=== PATIENT | male | born 1965 | race Caucasian/White ===

== ENCOUNTER 2019-03-14 12:06 | Emergency (ER) | payer BC ==
--- NOTE | 2019-03-14 12:29 | EDM.PDOC ---
ED HPI GENERAL MEDICAL PROBLEM - General Chief Complaint: Lower Extremity Injury/Pain Stated Complaint: TRIPPED AND PUNCTURED TYRONFT CALF WITH A DEER HORN Time Seen by Provider: 03/14/19 12:15 Source of Information: Reports: Patient History Limitations: Reports: No Limitations - History of Present Illness INITIAL COMMENTS - FREE TEXT/NARRATIVE: 54 YO WM presents to ER with puncture wound to left lower extremity after accidentally falling on a deer head. Pt reports wound to anterior tibia. Pt denies having to dislodge deer horn from wound but puncture wound is present on exam. Pt with PMH of IDDM with last HgbA1C- 8.0. Pt able to ambulate without difficulty but states wound is painful. Pt reports [facility]CP [facility] but he' s able to follow up in [facility] for wound checks over the next 48 hours. Bleeding controlled, sensation and motor function intact. Onset: Today Location: Reports: Lower Extremity, Left Quality: Reports: Dull Severity: Moderate Improves with: Reports: Rest Worsens with: Reports: Movement Associated Symptoms: Reports: No Other Symptoms Left Lower Leg Pain Score (Numeric/FACES): 8 - Related Data Allergies Allergy/AdvReac Type Severity Reaction Status Date / Time amlodipine besylate Allergy Fluid Verified 03/14/19 12:16 [From [facility]] Retention cefepime Allergy Rash Verified 03/14/19 12:16 Home Meds: Home Meds Gabapentin 300 mg PO DAILY 08/01/13 [History] Sertraline HCl [Zoloft] 100 mg PO DAILY 08/01/13 [History] Gabapentin [Neurontin] 600 mg PO 1200,2100 08/12/15 [History] Levothyroxine 75 mcg PO ACBREAKFAST 08/12/15 [History] Liraglutide [Victoza] 1.8 mg SQ DAILY 08/12/15 [History] Metoprolol Tartrate [Lopressor] 50 mg PO BID 08/12/15 [History] DAPTOmycin [Cubicin] 750 mg IV Q24H 10/12/15 [History] Insulin Glarg,Human.Rec.Analog [LantUS Solostar] 30 units SUBCUT 0800,2100 10/25 [History] Greene/Min Oil/Ivelisse/Wool Alcoh [Eucerin Crme] 1 gm TOP ASDIRECTED PRN 11/01/15 [ History] Enoxaparin [Lovenox] 40 mg SUBCUT DAILY 11/01/15 [History] Heparin Sodium,Porcine/PF [Heparin 300 Unit/3 ml (100/ml)] 300 unit FLUSH DAILY@ 202911/01/15 [History] Lactobacillus Acidophilus [Probiotic] 1 each PO 0800,1600 11/01/15 [History] Losartan [Cozaar] 100 mg PO DAILY 11/01/15 [History] Omeprazole 20 mg PO ACBREAKFAST 11/01/15 [History] Sodium Chloride 0.9% [Saline Flush] 10 ml FLUSH DAILY@199911/01/15 [History] Ciprofloxacin [Ciprofloxacin HCl] 750 mg PO BID #10 tablet 11/07/15 [Rx] metroNIDAZOLE [Flagyl] 500 mg PO Q8H #15 tablet 11/07/15 [Rx] oxyCODONE 10 mg PO BID PRN #30 tablet 11/07/15 [Rx] oxyCODONE HCl/Acetaminophen [oxyCODONE-Acetaminophen 5-325] 2 tab PO QID PRN # 60 tablet 11/07/15 [Rx] Amoxicillin/Potassium Clav [Augmentin 875-125 Tablet] 1 each PO BID #20 tablet 03/14/19 [Rx] Hydrocodone/Acetaminophen [Hydrocodon-Acetaminophn 10-325] 1 each PO Q6HR PRN # 10 tablet 03/14/19 [Rx] Past Medical History HEENT History: Reports: Impaired Vision Cardiovascular History: Reports: High Cholesterol, Hypertension Respiratory History: Reports: Sleep Apnea Gastrointestinal History: Reports: None Genitourinary History: Reports: None, Renal Calculus, Other (See Below) Other Genitourinary History: has renal calculy in bladder Musculoskeletal History: Reports: Back Pain, Chronic, Osteoarthritis Neurological History: Reports: Neuropathy, Diabetic Psychiatric History: Reports: Anxiety, Depression Endocrine/Metabolic History: Reports: Diabetes, Type II, Hyperthyroidism, Obesity/BMI 30+ Hematologic History: Reports: None Dermatologic History: Reports: Other (See Below) Other Dermatologic History: discoloration with scabs to bilat lower extremities. - Infectious Disease History Infectious Disease History: Reports: Other (See Below) Other Infectious Disease History: diskitis to L4-L5 - Past Surgical History Musculoskeletal Surgical History: Reports: Arthroscopic Knee, Arthroscopic Procedure, Joint Replacement, Knee Replacement, Other (See Below) Social & Family History - Family History Family Medical History: Noncontributory - Living Situation & Occupation Living situation: Reports: , with Family Occupation: Employed Review of Systems - Review of Systems Review Of Systems: See Below Constitutional: Reports: No Symptoms Eyes: Reports: No Symptoms Ears: Reports: No Symptoms Nose: Reports: No Symptoms Mouth/Throat: Reports: No Symptoms Respiratory: Reports: No Symptoms Cardiovascular: Reports: No Symptoms GI/Abdominal: Reports: No Symptoms Genitourinary: Reports: No Symptoms Musculoskeletal: Reports: Leg Pain Skin: Reports: Wound (puncture wound to anterior aspect of left tibia) Neurological: Reports: No Symptoms Psychiatric: Reports: No Symptoms ED EXAM, GENERAL - Physical Exam Exam: See Below Exam Limited By: No Limitations General Appearance: Alert, WD/WN, No Apparent Distress Head: Atraumatic, Normocephalic Neck: Normal Inspection, Supple, Non-Tender, Full Range of Motion Respiratory/Chest: No Respiratory Distress, Lungs Clear, Normal Breath Sounds, No Accessory Muscle Use, Chest Non-Tender Cardiovascular: Normal Peripheral Pulses, Regular Rate, Rhythm, No Edema, No Gallop, No JVD, No Murmur, No Rub GI/Abdominal: Normal Bowel Sounds, Soft, Non-Tender, No Organomegaly, No Distention, No Abnormal Bruit, No Mass Back Exam: Normal Inspection, Full Range of Motion, NT Extremities: Normal Range of Motion, No Pedal Edema, Normal Capillary Refill. No: Increased Warmth, Redness Neurological: Alert, Oriented, CN II-XII Intact, Normal Cognition, Normal Gait, Normal Reflexes, No Motor/Sensory Deficits Psychiatric: Normal Affect, Normal Mood Skin Exam: Wound/Incision (puncture wound to left lower extremity- anterior aspect of left tibia) ED TRAUMA EXTREMITY PROCEDURES - Laceration/Wound Repair Left Anterior Distal Leg Lac/Wound Length In cm: 5 Appearance: Subcutaneous, Mildly Contaminated Distal NVT: Neuro & Vascular Intact Local Anesthesia - Lidocaine (Xylocaine): 1% Plain Local Anesthetic Volume: 5cc Skin Prep: Chlorhexidine (Hibiciens), Saline Exploration/Debridement/Repair: Wound Explored Closed With: Sutures Suture Size: 4-0 # of Sutures: 4 Suture Type: Simple Sterile Dressing Applied: Provider Tetanus Status Addressed: Yes Complications: No Course - Vital Signs Last Recorded V/S: Last Vital Signs Temp 36.2 C 03/14/19 12:12 Pulse 65 03/14/19 12:12 Resp 18 03/14/19 12:12 BP 144/74 H 03/14/19 12:12 Pulse Ox 98 03/14/19 12:12 - Orders/Labs/Meds Orders: Active Orders 24 hr Category Date Time Status Accu Check [Blood Glucose Check, Bedside] [RC] ONETIME Care 03/14/19 12:31 Active Vaccines to be Administered [RC] PER UNIT ROUTINE Care 03/14/19 12:31 Active GLUCOSE,POC [POC] Routine Lab 03/14/19 12:31 Received Ampicillin/Sulbactam Na [Unasyn] 3 gm Med 03/14/19 12:29 Active Sodium Chloride 0.9% [Normal Saline] 100 ml IV ONETIME Medication Orders Ampicillin Sodium/Sulbactam (Sodium 3 gm/ Sodium Chloride) 100 mls @ 100 mls/ hr IV ONETIME ONE Stop: 03/14/19 13:28 Last Admin: 03/14/19 12:54 Dose: 100 mls/hr Meds: Medications Generic Name Dose Route Start Last Admin Trade Name Freq PRN Reason Stop Dose Admin Ampicillin Sodium/Sulbactam 100 mls @ 100 mls/hr 03/14/19 12:29 03/14/19 12: 54 Sodium 3 gm/ Sodium Chloride IV 03/14/19 13:28 100 mls/hr ONETIME ONE Administration Discontinued Medications Generic Name Dose Route Start Last Admin Trade Name Freq PRN Reason Stop Dose Admin Diphtheria/Tetanus/Acell Pertussis 0.5 ml 03/14/19 12:29 Adacel IM 03/14/19 12:30 .ONCE ONE Lidocaine HCl Confirm 03/14/19 12:47 03/14/19 12:55 Xylocaine 1% Administered 03/14/19 12:48 Not Given Dose 20 ml .ROUTE .STK-MED ONE Lidocaine HCl 10 ml 03/14/19 12:56 Xylocaine 1% INJECT 03/14/19 12:57 ONETIME ONE Morphine Sulfate 4 mg 03/14/19 12:29 03/14/19 12:36 Morphine IVPUSH 03/14/19 12:30 4 mg ONETIME ONE Administration Ondansetron HCl 4 mg 03/14/19 12:29 03/14/19 12:34 Zofran IVPUSH 03/14/19 12:30 4 mg ONETIME ONE Administration - Radiology Interpretation Free Text/Narrative:: left tibia- NAD Departure - Departure Time of Disposition: 12:59 Disposition: Home, Self-Care 01 Condition: Good Clinical Impression: Puncture wound of left lower leg Qualifiers: Encounter type: initial encounter Qualified Code(s): S81.832A - Puncture wound without foreign body, left lower leg, initial encounter - Discharge Information Prescriptions: Hydrocodone/Acetaminophen [Hydrocodon-Acetaminophn 10-325] 1 each PO Q6HR PRN # 10 tablet PRN Reason: Pain Amoxicillin/Potassium Clav [Augmentin 875-125 Tablet] 1 each PO BID #20 tablet Instructions: Puncture Wound, [id number] Referrals: Corrine Mendoza MD [Physician] - Forms: ED Department Discharge Additional Instructions: 1. discharge home 2. Augmentin 875mg PO BID x 10 days 3. hydrocodone 10/325 #10 Q6 hours PRN pain 4. follow up in clinic next 48 hours for recheck 5. suture removal 10-14 days 6. return to ER for worsening symptoms - My Orders Last 24 Hours: My Active Orders 03/14/19 12:29 Ampicillin/Sulbactam Na [Unasyn] 3 gm Sodium Chloride 0.9% [Normal Saline] 100 ml IV ONETIME 03/14/19 12:31 Accu Check [Blood Glucose Check, Bedside] [RC] ONETIME Vaccines to be Administered [RC] PER UNIT ROUTINE GLUCOSE,POC [POC] Routine - Assessment/Plan Last 24 Hours: My Active Orders 03/14/19 12:29 Ampicillin/Sulbactam Na [Unasyn] 3 gm Sodium Chloride 0.9% [Normal Saline] 100 ml IV ONETIME 03/14/19 12:31 Accu Check [Blood Glucose Check, Bedside] [RC] ONETIME Vaccines to be Administered [RC] PER UNIT ROUTINE GLUCOSE,POC [POC] Routine Assessment:: 1. puncture wound to left lower extremity- anterior tibia Plan: 1. discharge home 2. Augmentin 875mg PO BID x 10 days 3. hydrocodone 10/325 #10 Q6 hours PRN pain 4. follow up in clinic next 48 hours for recheck 5. suture removal 10-14 days 6. return to ER for worsening symptoms
[2019-03-14] MEDS: Ondansetron 4 MG/2 ML SDV IVPUSH ONE (12:34)
[2019-03-14] MEDS: Morphine 2 MG/ML Syringe IVPUSH ONE (12:36)
[2019-03-14] MEDS: Lidocaine 1% 20 ML MDV INJECT ONE (12:45)
[2019-03-14] MEDS: Ampicillin/Sulbactam Na 3 GM in Sodium Chloride 0.9% 100 ML IV ONE (12:54)
[2019-03-14] MEDS: Lidocaine 1% 20 ML MDV ONE (12:55)
--- NOTE | 2019-03-14 13:02 | CR ---
[id number] RAD/RAD Tibia Fibula Left EXAM: 4 VIEWS LEFT LOWER LEG. INDICATION: PUNCTURE WOUND. COMPARISON: None. DISCUSSION: No fracture, dislocation or other acute osseous abnormality. Post surgical changes following total left knee arthroplasty. No radiographic evidence of acute osteomyelitis. No radiodense foreign bodies are identified. Mild degenerative changes seen throughout the left foot and ankle. IMPRESSION: 1. As above. Reji Antonio DO 03/14/19 [id number] Thank you for allowing us to participate in the care of your patient.
[2019-03-14] MEDS: Diphtheria,Pertussis(Acell),Tetanus Vaccine 0.5 ML SDV IM ONE (13:05)
[2019-03-14 13:19] VITALS: BP 114/64; PULSE 69
== END 2019-03-14 13:30 | disposition home or self-care (01) ==
LOC: KA.ED 12:06
DX: S81.832A Puncture wound without foreign body, left lower leg, initial encounter (principal); S81.812A Laceration without foreign body, left lower leg, initial encounter; Z23 Encounter for immunization; I10 Essential (primary) hypertension; E11.40 Type 2 diabetes mellitus with diabetic neuropathy, unspecified; F41.9 Anxiety disorder, unspecified; F32.9 Major depressive disorder, single episode, unspecified; M19.90 Unspecified osteoarthritis, unspecified site; E05.90 Thyrotoxicosis, unspecified without thyrotoxic crisis or storm; E66.9 Obesity, unspecified; Z88.8 Allergy status to other drugs, medicaments and biological substances; Z79.899 Other long term (current) drug therapy; Z79.4 Long term (current) use of insulin; W01.0XXA Fall on same level from slipping, tripping and stumbling without subsequent striking against object, initial encounter
CPT/HCPCS: 12002; 73590-LT; 82962; 90471; 90715; 96365; 96375; 99283-25; J0295; J2001; J2270; J2405; J7050